=== PATIENT | female | born 1980 | race Caucasian/White ===

== ENCOUNTER 2018-04-21 12:00 | Emergency (ER) | payer MEDICAID ==
[2016-09-20 08:37] VITALS: BMI 28.0
[2018-04-21] MEDS ORDERED: Lactated Ringer's 1,000 ML IV ONE (14:17)
[2018-04-21] MEDS ORDERED: Lactated Ringer's 1,000 ML IV SCH (14:30)
--- NOTE | 2018-04-21 15:53 | OBHP ---
Datetime: 04/21/2018 15:36 IP Adm Impression: Term, intrauterine IP Admit Plan: Observation/Evaluation Admit Comment, IP Provider: PT ARRIVED WITH COMPLAINTS OF VAGINAL DISCHARGE. SPECULUM EXAM WAS NEGA TIVE FOR POOLING AND NITRAZINE WAS NEGATIVE. PT WAS OBSERVED FOR 3 HOURS. NO CERVICAL CHANGE NOTED. P T IS 3/50/-3 WITH NO CERVICAL CHANGE FOR MORE THAN 3 HOURS. PT WAS GIVEN 2 LITERS OF IVF FOR THE FETA L TACHYCARDIA 160-170S WITH NO CHANGE IN BASELINE. PT HAS A HISTORY OF VSD DIAGNOSED BY [facility] . AFTER 3.5 HOURS OF OBSERVATION, THE DECISION WAS MADE TO TRANSFER THE PT SINCE OUR FACILITY IS NOT ABLE TO PROVIDE APPROPRIATE CARE FOR A BABY WITH VSD. CARE: Jacobo LEWIS. POBHX: [id number] THIS AMA, RH NEGATIVE; S/P RHOGAM @ 28 WEEKS. ABNORMAL NUCHAL FOLD; 6MM HX OF PTD 1999: #9 LBS 12OZ 2002: PTD @ 30 WEEKS IN [facility] 2008: 17 WEEKS SAB 2010: 40 #10 LBS 2016: 38 WKS #7LBD 10oz 2010: SAB: 17 WEEKS. SHX: 2005 SUCTION D_c FOR SAB. FHX: NONE TRACING: CATEGORY 2. A/P: 26 1) VSS AFEBRILE 2) EARLY LABOR 3/50/-3 AFTER 3 HOURS. CTX IRREGULAR. 3) HX OF VSD WITH MFM AT [facility]. 4) WILL FACILITATE TRANSFER. Pelvic Type - PN: Adequate Extremities - PN: Normal Abdomen - PN: Normal Back - PN: Normal Breast - PN: Normal Lungs - PN: Normal Heart - PN: Normal Thyroid - PN: Normal Neurologic - PN: Normal HEENT - PN: Normal General - PN: Normal FHR - Baseline A Provider: 150 Membranes, Provider: Intact Contraction Comments Provider: NONE IP Hx Assessment: The History has been Reviewed and is Current EGA AdmitDate IP: 40.0 IP Chief Complaint: Suspected ruptured membranes NICHD Variability Prov Fetus A: Moderate 6-25bpm NICHD Accel Fetus A IP Provider: 15X15 Dilatation, Provider: 3 Effacement, Provider: 50 Station, Provider: -3 Genitourinary Exam: Normal DTRs - PN: Normal
[2018-04-21 21:19] VITALS: BP 115/80; PULSE 82; TEMP 97.7; O2SAT 99
== END 2018-04-21 16:28 | disposition short-term general hospital (02) ==
LOC: C.EROB 12:00
DX: O47.1 False labor at or after 37 completed weeks of gestation (principal); Z3A.40 40 weeks gestation of pregnancy
CPT/HCPCS: 82948; 99283; J7120